=== PATIENT | female | born 1985 | race American Indian/Alaskan Native ===

== ENCOUNTER 2020-12-18 09:21 | Inpatient (IN) | payer MEDICAID ==
--- NOTE | 2020-12-18 09:30 | Emergency Department Report ---
ED Neuro Deficit HPI - General Stated Complaint: STROKE SX Time Seen by Provider: 12/18/20 09:23 Source: patient, EMS Mode of arrival: Ambulatory Limitations: No Limitations - History of Present Illness Initial Comments: Chief complaint: "My left leg is weak." HPI: This is a 35-year-old with history of TIA, hypertension, hyperlipidemia, diabetes mellitus lupus CHF and severe obesity who presents with left leg arm weakness and inability to walk. LEft leg weakness occurred 755. She felt her balance off. She keeps leaning to the left. Patient arrived via EMS. 2 months ago she was admitted to [facility] for stroke symptoms.EMS noted left arm drift. She was unable to stand or walk. -: Gradual, This morning Location: left leg Presenting Symptoms: Present: Weak/Paralyzed One Side History of same: Yes Place: home Severity: mild Quality: weak Improves With: none Worsens With: none Context: other (Patient awakened with symptoms) Associated Symptoms: other (Patient is unable to walk) - Related Data Allergies/Adverse Reactions: Allergies Allergy/AdvReac Type Severity Reaction Status Date / Time povidone-iodine AdvReac Itching Verified 12/18/20 10:18 [From Betadine] ED Review of Systems ROS: Stated complaint: STROKE SX Other details as noted in HPI Comment: All other systems reviewed and negative Constitutional: denies: fever, malaise Respiratory: denies: cough, shortness of breath Cardiovascular: denies: chest pain Gastrointestinal: denies: abdominal pain, nausea, vomiting Neurological: weakness ED Past Medical Hx - Past Medical History Previous Medical History?: Yes Hx Hypertension: Yes Hx CVA: Yes (TIA) Hx Diabetes: Yes Additional medical history: Hyperlipidemia, severe obesity - Family History Family history: hypertension, vascular disease - Social History Smoking Status: Never Smoker Substance Use Type: None ED Neuro Physical Exam - General Limitations: No Limitations General appearance: alert, in no apparent distress Suspected Stroke: Yes - Head Head exam: Present: atraumatic, normocephalic - Eye Eye exam: Present: normal appearance - ENT ENT exam: Present: mucous membranes moist - Neck Neck exam: Present: normal inspection, full ROM. Absent: tenderness, meni ngismus - Respiratory Respiratory exam: Present: normal lung sounds bilaterally. Absent: respiratory distress, wheezes, rales, rhonchi - Cardiovascular Cardiovascular Exam: Present: regular rate, normal rhythm, normal heart sounds. Absent: systolic murmur, diastolic murmur, rubs, gallop - GI/Abdominal GI/Abdominal exam: Present: soft, normal bowel sounds. Absent: distended, ten derness, guarding, rebound - Extremities Exam Extremities exam: Present: normal inspection - Neurological Exam Neurological exam: Present: alert, oriented X3 - NIHSS Assessment Interval: Baseline 1a. Level of Consciousness: alert/keenly responsive 1b. LOC Questions: answers both correctly 1c. LOC Commands: performs tasks correctly 2. Best Gaze: normal 3. Visual: no visual loss 4. Facial Palsy: normal symmetrical movement 5b. Motor Arm Right: no drift 5a. Motor Arm Left: some gravity effort 6a. Motor Leg Left: no gravity effort 6b. Motor Leg Right: no drift 7. Limb Ataxia: absent 8. Sensory: normal 9. Best Language: no aphasia 10. Dysarthria: normal 11. Extinction/Inattention: no abnormality Total Score: 5 Stroke Severity: Moderate Stroke - Psychiatric Psychiatric exam: Present: depressed, flat affect. Absent: suicidal ideation - Skin Skin exam: Present: warm, dry, intact, normal color. Absent: rash ED Course Vital Signs 12/18/20 12/18/20 12/18/20 09:53 10:01 10:02 Pulse Rate 90 Pulse Rate [ Right Arm] Respiratory 28 H Rate Respiratory Rate [Right Arm ] Blood Pressure 145/75 145/75 Blood Pressure [Right Arm] O2 Sat by Pulse 99 100 Oximetry O2 Sat by Pulse Oximetry [ Right Arm] 12/18/20 12/18/20 12/18/20 10:15 10:22 10:31 Pulse Rate 86 Pulse Rate [ 82 Right Arm] Respiratory 18 Rate Respiratory 17 Rate [Right Arm ] Blood Pressure 145/73 137/72 Blood Pressure 136/70 [Right Arm] O2 Sat by Pulse 100 99 Oximetry O2 Sat by Pulse 98 Oximetry [ Right Arm] 12/18/20 12/18/20 10:37 10:52 Pulse Rate Pulse Rate [ 90 88 Right Arm] Respiratory Rate Respiratory 16 16 Rate [Right Arm ] Blood Pressure Blood Pressure 130/71 135/78 [Right Arm] O2 Sat by Pulse Oximetry O2 Sat by Pulse 100 99 Oximetry [ Right Arm] - Reevaluation(s) Reevaluation #1: 12/18/20 09:[address] Dias radiologist. He reported normal CT scan of the head. Reevaluation #2: 12/18/20 09:50 I spoke with teleneurologist. He recommended TPA. I informed charge nurse that patient requires alteplase. I placed the TPA order. Teleneurologist obtained informed consent for TPA from patient. Reevaluation #3: 12/18/20 09:[address] angiogram of the head and neck. I have placed this order. Reevaluation #4: 12/18/20 10:30 I was called to the bedside. Treatment nurse tell me that patient felt an odd sensation. Patient is lucid and alert. She states that she just feels heavy. She has the inclination to just fall back. She denies headache. She does have "heavy sensation". She denies headache. She is currently receiving TPA infusion. - Lab Data Result diagrams: 12/18/20 09:59 12/18/20 09:59 Lab Results 12/18/20 12/18/20 12/18/20 Range/Units 09:25 09:59 09:59 WBC 4.5 (4.5-11.0) K/mm3 RBC 4.03 (3.65-5.03) M/mm3 Hgb 10.8 (10.1-14.3) gm/dl Hct 32.8 (30.3-42.9) % MCV 81 (79-97) fl MCH 27 L (28-32) pg MCHC 33 (30-34) % RDW 16.0 H (13.2-15.2) % Plt Count 204 (140-440) K/mm3 Lymph % (Auto) 34.0 (13.4-35.0) % Waldo % (Auto) 8.4 H (0.0-7.3) % Eos % (Auto) 2.6 (0.0-4.3) % Baso % (Auto) 0.4 (0.0-1.8) % Lymph # (Auto) 1.5 (1.2-5.4) K/mm3 Waldo # (Auto) 0.4 (0.0-0.8) K/mm3 Eos # (Auto) 0.1 (0.0-0.4) K/mm3 Baso # (Auto) 0.0 (0.0-0.1) K/mm3 Seg Neutrophils % 54.6 (40.0-70.0) % Seg Neutrophils # 2.4 (1.8-7.7) K/mm3 PT 14.2 (12.2-14.9) Sec. INR 1.04 (0.87-1.13) APTT 30.8 (24.2-36.6) Sec. Chloride (98-107) mmol/L POC Glucose 162 H (70-105) mg/dL Total Bilirubin (0.1-1.2) mg/dL Troponin T (0.00-0.029) ng/mL 12/18/20 Range/Units 09:59 WBC (4.5-11.0) K/mm3 RBC (3.65-5.03) M/mm3 Hgb (10.1-14.3) gm/dl Hct (30.3-42.9) % MCV (79-97) fl MCH (28-32) pg MCHC (30-34) % RDW (13.2-15.2) % Plt Count (140-440) K/mm3 Lymph % (Auto) (13.4-35.0) % Waldo % (Auto) (0.0-7.3) % Eos % (Auto) (0.0-4.3) % Baso % (Auto) (0.0-1.8) % Lymph # (Auto) (1.2-5.4) K/mm3 Waldo # (Auto) (0.0-0.8) K/mm3 Eos # (Auto) (0.0-0.4) K/mm3 Baso # (Auto) (0.0-0.1) K/mm3 Seg Neutrophils % (40.0-70.0) % Seg Neutrophils # (1.8-7.7) K/mm3 PT (12.2-14.9) Sec. INR (0.87-1.13) APTT (24.2-36.6) Sec. Chloride 60.0 L (98-107) mmol/L POC Glucose (70-105) mg/dL Total Bilirubin < 0.20 (0.1-1.2) mg/dL Troponin T < 0.010 (0.00-0.029) ng/mL - EKG Data EKG shows normal: sinus rhythm, axis, intervals, QRS complexes, ST-T waves Rate: normal Interpretation: normal EKG 12/18/20 10:26 EKG obtained 1007 EKG interpreted by nv Rate 80 bpm normal axis normal intervals nonischemic T wave pattern no ST elevation - Radiology Data Radiology results: report reviewed Patient Name: NEO WONG Gender: Female Date of : 1985 Referring Provider: SHEREEN MILLARD Organization: [facility] Accession Number: [id number] Requested Date: December 18, 2020 09:23 Report Status: Final Requested Procedure: 1 Procedure Description: CT head/brain wo con Modality: CT Findings Reporting MD: Pan Claire Dictation Time: December 18, 2020 08:50 Director Of Event Management: Not available Hammer Driver Date: CT HEAD WITHOUT CONTRAST INDICATION / CLINICAL INFORMATION: CODE STROKE CALL ER MAIN AT 8199 Stroke symptoms left leg weakness. TECHNIQUE: All CT scans at this location are performed using CT dose reduction for ALARA by means of automated exposure control. COMPARISON: None available. FINDINGS: HEMORRHAGE: No evidence of intracranial hemorrhage or extra-axial fluid collection. EXTRA-AXIAL SPACES: Cortical sulci, sylvian fissures and basilar cisterns have an unremarkable appearance. VENTRICULAR SYSTEM: The third and lateral ventricles are of normal size and con figuration. CEREBRAL PARENCHYMA: No areas of abnormal brain parenchymal attenuation are identified. There is no indication of recent infarction. MIDLINE SHIFT OR HERNIATION: There is no mass effect. CEREBELLUM / BRAINSTEM: Brainstem and cerebellum have an unremarkable appearance. MIDLINE STRUCTURES:No abnormalities of the pituitary gland or pineal region are identified. INTRACRANIAL VESSELS:No abnormalities are identified on this noncontrast head CT. ORBITS: visualized portions of the orbits have an unremarkable appearance. SOFT TISSUES of HEAD: No significant abnormality. CALVARIUM: Evaluation of bone windows reveals no abnormalities. PARANASAL SINUSES / MASTOID AIR CELLS: Visualized portions of the paranasal sinuses are free from inflammatory mucosal disease. Mastoid air cells are normally pneumatized. ADDITIONAL FINDINGS: Incidental note is made of prominent dural calcifications in the inner table of the parietal lobes bilaterally. IMPRESSION: 1. Normal head CT without contrast. CODE STROKE: Time of Communication (NURSING HOME ASSISTANT/CDT): 0850 hours Central standard time Licensed Practitioner Receiving Report: Dr. Millard of the [facility] emergency department. Signer Name: Pan Claire MD Signed: 12/18/2020 8:50 AM Workst Patient Name: NEO WONG Gender: Female Date of : 1985 Referring Provider: SHEREEN MILLARD Organization: [facility] Accession Number: [id number] Requested Date: December 18, 2020 09:23 Report Status: Final Requested Procedure: 1 Procedure Description: XR chest 1V ap Modality: XR Findings Reporting MD: Thomas Jules Dictation Time: December 18, 2020 09:06 Director Of Event Management: Not available Hammer Driver Date: CHEST 1 VIEW INDICATION: stroke symptoms left leg weakness. COMPARISON: None FINDINGS: Support devices: None. Heart: Mild cardiomegaly. Lungs/Pleura: There is poor inspiration. The lungs are generally clear. No pneumothorax. Additional findings: None. IMPRESSION: Mild cardiomegaly. Lungs clear. Signer Name: Thomas Jules Jr, MD Signed: 12/18/2020 9:06 AM Workstation Name: [id number] Patient Name: NEO WONG Gender: Female Date of : 1985 Referring Provider: SHEREEN MILLARD Organization: [facility] Accession Number: [id number] Requested Date: December 18, 2020 09:41 Report Status: Final Requested Procedure: 1 Procedure Description: CT angio head Modality: CT Findings Reporting MD: Rob Díaz Dictation Time: December 18, 2020 09:37 Director Of Event Management: Not available Hammer Driver Date: CT angio head HISTORY: stroke symptoms left sided weakness OMNI 350 100 ML COMPARISON: CT head same day. TECHNIQUE: CTA of the head is performed after IV contrast. 3-D/MIP reformats were postprocessed. Percentage stenosis is determined by direct quantitative measurements of diseased internal carotid artery diameter compared with normal distal internal carotid artery reference segments or by criteria similar to NASCET where applicable. All CT scans at this location are performed using CT dose reduction for ALARA by means of automated exposure control. FINDINGS: CTA HEAD: Intracranial internal carotid arteries: No occlusion or significant stenosis. Anterior cerebral arteries: No occlusion or significant stenosis. Middle cerebral arteries: No occlusion or significant stenosis. Intracranial vertebral arteries: No occlusion or significant stenosis. Basilar artery: No occlusion or significant stenosis. Posterior cerebral arteries: No occlusion or significant stenosis. No aneurysm. Additional findings: None. IMPRESSION: 1. CTA HEAD: No proximal large vessel occlusion or significant stenosis of the major intracranial vasculature. Signer Name: Rob Díaz MD Signed: 12/18/2020 9:37 AM Workstation Name: [id number] Patient Name: NEO WONG Gender: Female Date of : 1985 Referring Provider: SHEREEN MILLARD Organization: [facility] Accession Number: [id number] Requested Date: December 18, 2020 09:42 Report Status: Final Requested Procedure: 1 Procedure Description: CT angio neck Modality: CT Findings Reporting MD: Rob Díaz Dictation Time: December 18, 2020 09:35 Director Of Event Management: Not available Hammer Driver Date: CTA NECK WITH CONTRAST HISTORY: Stroke. COMPARISON: None. TECHNIQUE: Routine CTA of the neck is performed. 3-D/MIP reformats were postprocessed. Percentage stenosis is determined by direct quantitative measurements of diseased internal carotid artery diameter compared with normal distal internal carotid artery reference segments or by criteria similar to NASCET where applicable. CONTRAST: 100 ml of Omnipaque 350 FINDINGS: Aortic arch: No significant abnormality. Cervical vertebral arteries: Artifact degrades the V1 and proximal V2 segments of the vertebral arteries. The remainder of the V2, V3, V4 segments are patent without occlusion or stenosis.. Common carotid arteries: Artifact degrades image quality of the proximal common carotid arteries. The well-visualized, carotid arteries demonstrate no occlusion or significant stenosis. However there is no occlusion is contrast seen distally. Cervical internal carotid arteries: No occlusion or significant stenosis. Additional findings: None. IMPRESSION: 1. Artifact degrades the proximal portions of the vertebral and common carotid arteries. However, there is no significant stenosis or occlusion identified in the appreciated arteries. Signer Name: Rob Díaz MD Signed: 12/18/2020 9:35 AM Workstation Name: [id number] - Medical Decision Making Acute CVA NIHSS 5, total neurologist recommended alteplase. I ordered TPA. Patient symptoms did improve during administration of TPA. She is now able to move her left arm. Patient admitted to the ICU in fair condition. No LVO seen on CT angiogram of the head and neck. CBC chemistry troponin chest radiograph EKG all unremarkable. Critical Care Time: Yes Critical care time in (mins) excluding proc time.: 40 Critical care attestation.: If time is entered above; I have spent that time in minutes in the direct care of this critically ill patient, excluding procedure time. 40 minutes of critical care time excluding procedures were used in the care of the patient. Prior to patient's arrival, code stroke activated after consulting charge nurse. I came immediately to the bedside upon patient's arrival. I obtained history from EMS at the bedside. I asked paramedics to take patient to CT scanner. I discussed treatment plan with the nursing team members. I reviewed electronic record. Patient required multiple interventions and reassessments. ED Disposition Clinical Impression: Acute CVA (cerebrovascular accident) Disposition: ADMITTED INPATIENT Is pt being admited?: Yes Does the pt Need Aspirin: No Condition: Stable
[2020-12-18] MEDS ORDERED: ALTEPLASE 100 MG INJ KIT IV ONE ×2 (09:35)
[2020-12-18] MEDS ORDERED: SODIUM CHLORIDE 0.9% 50 ML IVPB IV SCH (09:35)
--- NOTE | 2020-12-18 09:54 | Cat Scan Report ---
CT HEAD WITHOUT CONTRAST INDICATION / CLINICAL INFORMATION: CODE STROKE CALL ER MAIN AT 8199 Stroke symptoms left leg weakness. TECHNIQUE: All CT scans at this location are performed using CT dose reduction for ALARA by means of automated e xposure control. COMPARISON: None available. FINDINGS: HEMORRHAGE: No evidence of intracranial hemorrhage or extra-axial fluid collection. EXTRA-AXIAL SPACES: Cortical sulci, sylvian fissures and basilar cisterns have an unremarkable appear ance. VENTRICULAR SYSTEM: The third and lateral ventricles are of normal size and configuration. CEREBRAL PARENCHYMA: No areas of abnormal brain parenchymal attenuation are identified. There is no i ndication of recent infarction. MIDLINE SHIFT OR HERNIATION: There is no mass effect. CEREBELLUM / BRAINSTEM: Brainstem and cerebellum have an unremarkable appearance. MIDLINE STRUCTURES:No abnormalities of the pituitary gland or pineal region are identified. INTRACRANIAL VESSELS:No abnormalities are identified on this noncontrast head CT. ORBITS: visualized portions of the orbits have an unremarkable appearance. SOFT TISSUES of HEAD: No significant abnormality. CALVARIUM: Evaluation of bone windows reveals no abnormalities. PARANASAL SINUSES / MASTOID AIR CELLS: Visualized portions of the paranasal sinuses are free from inf lammatory mucosal disease. Mastoid air cells are normally pneumatized. ADDITIONAL FINDINGS: Incidental note is made of prominent dural calcifications in the inner table of the parietal lobes bilaterally. IMPRESSION: 1. Normal head CT without contrast. CODE STROKE: Time of Communication (REGISTERED HEALTH NURSE/CDT): 0850 hours Central standard time Licensed Practitioner Receiving Report: Dr. Millard of the [facility] emergency department. Signer Name: Pan Claire MD Signed: 12/18/2020 9:50 AM Workstation Name: [id number]
[2020-12-18 10:09] LABS: Basophils % (Auto) 0.4 % (0.0-1.8); Eosinophils # (Auto) 0.1 K/mm3 (0.0-0.4); Eosinophils % (Auto) 2.6 % (0.0-4.3); Hematocrit 32.8 % (30.3-42.9); Hemoglobin 10.8 gm/dl (10.1-14.3); Lymphocytes # (Auto) 1.5 K/mm3 (1.2-5.4); Mean Corpuscular HGB Conc 33 % (30-34); Mean Corpuscular Volume 81 fl (79-97); Monocytes # (Auto) 0.4 K/mm3 (0.0-0.8); Monocytes % (Auto) 8.4 % (0.0-7.3); Platelet Count 204 K/mm3 (140-440); Red Blood Count 4.03 M/mm3 (3.65-5.03)
--- NOTE | 2020-12-18 10:11 | XRay Report ---
CHEST 1 VIEW INDICATION: stroke symptoms left leg weakness. COMPARISON: None FINDINGS: Support devices: None. Heart: Mild cardiomegaly. Lungs/Pleura: There is poor inspiration. The lungs are generally clear. No pneumothorax. Additional findings: None. IMPRESSION: Mild cardiomegaly. Lungs clear. Signer Name: Thomas Jules Jr, MD Signed: 12/18/2020 10:06 AM Workstation Name: [id number]
[2020-12-18 10:21] LABS: INR 1.04 (0.87-1.13)
[2020-12-18 10:22] LABS: Partial Thromboplastin Time 30.8 Sec. (24.2-36.6)
--- NOTE | 2020-12-18 10:30 | Consultation ---
History of Present Illness - Reason for Consult Consult date: 12/18/20 - History of Present Illness [facility] Consult Note # Demographics Consult Type: Acute Stroke Level 1 (0-4.5 hrs) Patient Location: Emergency Room First Name: Geovanna Last Name: Roxann Date of : 1985 Age: 35 Gender: Female Time of Initial Page ( Time): 12/18/2020, 09:26 Time of Return Call (): 12/18/2020, 09:27 # HPI History: 35yo woman who presents with sudden onset of left sided weakness starting at 825AM. She awoke at 755AM and had no issues. EMS was called, and she was noted to have left arm drift. She was not able to stand well. Sensation seems to be intact. She had a TIA a few months ago. Possible Thrombolytic candidate: not on warfarin or NOACs no intracranial hemorrhage history no recent major surgery no known active major internal bleeding no known blood disorders # Scores Time of exam and NIHSS (): 12/18/2020, 09:28 Level of Consciousness 1a: [0] = Alert; keenly responsive LOC Questions 1b: [0] = Answers both questions correctly LOC Commands 1c: [0] = Performs both tasks correctly Best Gaze 2: [0] = Normal Visual 3: [0] = No visual loss Facial Palsy 4: [0] = Normal symmetrical movements Motor Arm Left 5a: [1] = Drift Motor Arm Right 5b: [0] = No drift Motor Leg Left 6a: [4] = No movement Motor Leg Right 6b: [0] = No drift Limb Ataxia 7: [0] = Absent Sensory 8: [0] = Normal Best Language 9: [0] = No aphasia Dysarthria 10: [0] = Normal Extinction and Inattention 11: [0] = No abnormality NIHSS Total: 5 # Exam Vitals: vital signs reviewed SBP: 150 DBP: 90 # PMH-FH-SH Past Medical History: congestive heart failure Diabetes hypertension TIA lupus Medications: aspirin lipid lowering agent Allergies: betadine # Data Glucose: [address] personally read by me ( Time): 12/18/2020, 09:[address]: no bleed # Assessment Impression: Ischemic Stroke (Acute) # Plan Thrombolytic/Intervention: IV Thrombolysis Thrombolytic Dosing: IV alteplase 0.9 mg/kg, max dose 90 mg; 10% of dose given over 1 minute IVP, remaining 90% given as infusion over 1 hour Intraarterial Exclusion: clinically consistent with small vessel disease Time IV Thrombolytic Recommended ( Time): 12/18/2020, 09:31 Target Blood Pressure: SBP < 180 DBP < 105 Labs: ESR lipid panel Imaging: (urgency: STAT): CT Angiogram Head and CT Angiogram Neck Diagnostic Test: echo with bubble study Therapy/Evaluation: NPO until swallow evaluation PT/OT evaluation speech/swallow consultation DVT Prophylaxis: SCD Thrombolytic Administration Recommendations: I reviewed the risks/benefits/alternatives of IV thrombolytic therapy with the patient. She understands there is potential of life threatening hemorrhage from IV thrombolysis. I stated that I believe benefits outweighs risk. She wishes to proceed with IV thrombolytic therapy. I have collected independent history specific to time last normal or last known well. We have collaborated with the ED provider and at this time, we have the most current timeline with the information that is available. BP goal< 180/105 for 24hrs post Thrombolytic administration Use Labetolol 10-20mg IV prn or Nicardipine gtt to maintain BP parameters No antiplatelets or anticoagulants for next 24 hrs unless indicated for emergent IA procedure or other life threatening situation ICU admission Call back if there is any decline in neurological condition Other: telemetry monitoring I have discussed my recommendations with the referring provider Disposition: transfer to ICU Medications and Allergies Allergies Allergy/AdvReac Type Severity Reaction Status Date / Time povidone-iodine AdvReac Itching Verified 12/18/20 10:18 [From Betadine] Active Meds: Active Medications Alteplase, Recombinant (Alteplase 100 Mg Inj Kit) 9 mg IV ONCE ONE; Protocol Stop: 12/18/20 09:36 Last Admin: 12/18/20 10:01 Dose: 9 mg Documented by: Alteplase, Recombinant (Alteplase 100 Mg Inj Kit) 81 mg IV ONCE ONE; Protocol Stop: 12/18/20 09:36 Last Admin: 12/18/20 10:02 Dose: 81 mg Documented by: Sodium Chloride (Sodium Chloride 0.9% 50 Ml Ivpb) 50 ml IV ONCE ONE Stop: 12/18/20 09:36 Exam - Constitutional Vitals: Temp Pulse Resp BP Pulse Ox 85 16 145/73 99 12/18/20 10:15 12/18/20 10:15 12/18/20 10:15 12/18/20 10:15 Results - Labs CBC & Chem 7: 12/18/20 09:59 12/18/20 09:59 Labs: Abnormal lab results 12/18/20 12/18/20 Range/Units 09:25 09:59 MCH 27 L (28-32) pg RDW 16.0 H (13.2-15.2) % Marshall % (Auto) 8.4 H (0.0-7.3) % POC Glucose 162 H (70-105) mg/dL
[2020-12-18 10:31] LABS: Hemolysis Index 1
--- NOTE | 2020-12-18 10:39 | Cat Scan Report ---
CTA NECK WITH CONTRAST HISTORY: Stroke. COMPARISON: None. TECHNIQUE: Routine CTA of the neck is performed. 3-D/MIP reformats were postprocessed. Percentage st enosis is determined by direct quantitative measurements of diseased internal carotid artery diameter compared with normal distal internal carotid artery reference segments or by criteria similar to JOSÉ LUIS CET where applicable. CONTRAST: 100 ml of Omnipaque 350 FINDINGS: Aortic arch: No significant abnormality. Cervical vertebral arteries: Artifact degrades the V1 and proximal V2 segments of the vertebral arter ies. The remainder of the V2, V3, V4 segments are patent without occlusion or stenosis.. Common carotid arteries: Artifact degrades image quality of the proximal common carotid arteries. The well-visualized, carotid arteries demonstrate no occlusion or significant stenosis. However there is no occlusion is contrast seen distally. Cervical internal carotid arteries: No occlusion or significant stenosis. Additional findings: None. IMPRESSION: 1. Artifact degrades the proximal portions of the vertebral and common carotid arteries. However, the re is no significant stenosis or occlusion identified in the appreciated arteries. Signer Name: Rob Díaz MD Signed: 12/18/2020 10:35 AM Workstation Name: [id number]
--- NOTE | 2020-12-18 10:41 | Cat Scan Report ---
CT angio head HISTORY: stroke symptoms left sided weakness OMNI 350 100 ML COMPARISON: CT head same day. TECHNIQUE: CTA of the head is performed after IV contrast. 3-D/MIP reformats were postprocessed. Per centage stenosis is determined by direct quantitative measurements of diseased internal carotid arter y diameter compared with normal distal internal carotid artery reference segments or by criteria sade lar to NASCET where applicable. All CT scans at this location are performed using CT dose reduction f or ALARA by means of automated exposure control. FINDINGS: CTA HEAD: Intracranial internal carotid arteries: No occlusion or significant stenosis. Anterior cerebral arteries: No occlusion or significant stenosis. Middle cerebral arteries: No occlusion or significant stenosis. Intracranial vertebral arteries: No occlusion or significant stenosis. Basilar artery: No occlusion or significant stenosis. Posterior cerebral arteries: No occlusion or significant stenosis. No aneurysm. Additional findings: None. IMPRESSION: 1. CTA HEAD: No proximal large vessel occlusion or significant stenosis of the major intracranial vas culature. Signer Name: Rob Díaz MD Signed: 12/18/2020 10:37 AM Workstation Name: [id number]
[2020-12-18 12:05] LABS: Alanine Aminotransferase 12 units/L (7-56); Albumin 3.5 g/dL (3.9-5); BUN/Creatinine Ratio 15; Blood Urea Nitrogen 12 mg/dL (7-17); Calcium 8.8 mg/dL (8.4-10.2)
[2020-12-18] MEDS ORDERED: ONDANSETRON 4 MG/2 ML INJ IV PRN (13:00)
[2020-12-18] MEDS ORDERED: SODIUM CHLORIDE 0.9% 1000 ML 1,000 ML IV SCH (13:00)
[2020-12-18] MEDS ORDERED: ACETAMINOPHEN 325 MG TAB PO PRN (13:00)
[2020-12-18] MEDS: FAMOTIDINE 20 MG/2 ML INJ IV SCH ×2 (13:20→21:36)
[2020-12-18] MEDS: HYDROmorphone 1 MG/1 ML INJ IV PRN ×3 (13:21→20:37)
[2020-12-19 06:02] LABS: Basophils % (Auto) 0.2 % (0.0-1.8); Eosinophils # (Auto) 0.1 K/mm3 (0.0-0.4); Eosinophils % (Auto) 0.7 % (0.0-4.3); Hematocrit 32.6 % (30.3-42.9); Hemoglobin 10.8 gm/dl (10.1-14.3); Lymphocytes # (Auto) 1.5 K/mm3 (1.2-5.4); Lymphocytes % (Auto) 19.5 % (13.4-35.0); Mean Corpuscular HGB Conc 33 % (30-34); Mean Corpuscular Volume 82 fl (79-97); Monocytes # (Auto) 0.4 K/mm3 (0.0-0.8); Monocytes % (Auto) 5.6 % (0.0-7.3); Platelet Count 219 K/mm3 (140-440); Red Cell Distribution Width 16.1 % (13.2-15.2)
[2020-12-19 06:19] LABS: Alanine Aminotransferase 15 units/L (7-56); Albumin 3.7 g/dL (3.9-5); Blood Urea Nitrogen 10 mg/dL (7-17); Calcium 8.5 mg/dL (8.4-10.2); Hemolysis Index 8
[2020-12-19 06:21] LABS: BUN/Creatinine Ratio 14
--- NOTE | 2020-12-19 06:42 | History and Physical Report ---
History of Present Illness Date of examination: 12/18/20 Date of admission: 12/18/20 11:30 Chief complaint: Left-sided weakness since 7:55 AM History of present illness: 35-year-old female with history of hypertension, TIA, hyperlipidemia, diabetes mellitus, lupus and CHF and obesity comes in with left-sided weakness in both left upper extremity and left lower extremity. Last well-known time was 7 AM. Patient had difficulty walking around 7:55 AM. Patient has been off her balance. Called EMS. 2 months ago she was admitted to [facility] for TIA. Patient is unable to stand or walk. Patient unable to lift her left arm. In the ER code stroke was called and the teleneurology agreed with TPA and TPA was given because the patient was within the timeframe of TPA. Post TPA patient doing well has some improvement in the left upper extremity weakness and left lower extremity weakness. - Past Medical History Previous Medical History?: Yes --Hypertension: Yes --CVA: Yes (TIA) --Diabetes: Yes Additional medical history: Hyperlipidemia, severe obesity - Past surgical history n/a - Family History Family history: hypertension, vascular disease - Social History Smoking Status: Never Smoker Substance Use Type: None Review of Systems ROS: Constitutional no weight loss or weight gain no fever or chills HEENT no sore throat no post nasal drip no diplopia Neck no neck stiffness no lymph gland enlargement Chest and lungs no shortness of breath cough or wheezing CVS no chest pain no diaphoresis no palpitations GI no nausea no vomiting no diarrhea Genitourinary system no dysuria no flank pain Musculoskeletal system no muscle pains 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 both upper and lower extremity on the left side Skin no rash no itching Psychiatric no depression no homicidal or suicidal tendencies Hematologic no lymphedema or bruising Endocrine no polydipsia no polyuria no cold intolerance no heat intolerance Medications and Allergies Allergies Allergy/AdvReac Type Severity Reaction Status Date / Time povidone-iodine AdvReac Itching Verified 12/18/20 10:18 [From Betadine] Active Meds: Active Medications Acetaminophen (Acetaminophen 325 Mg Tab) 650 mg PO Q4H PRN PRN Reason: Pain MILD(1-3)/Fever >100.5/PERKINS Famotidine (Famotidine 20 Mg/2 Ml Inj) 20 mg IV BID CHRISTINE Last Admin: 12/18/20 21:36 Dose: 20 mg Documented by: Hydromorphone HCl (Hydromorphone 1 Mg/1 Ml Inj) 0.5 mg IV Q3H PRN PRN Reason: Pain , Severe (7-10) Last Admin: 12/18/20 20:37 Dose: 0.5 mg Documented by: Sodium Chloride (Nacl 0.9% 1000 Ml) 1,000 mls @ 75 mls/hr IV DIRECT [facility] Last Admin: 12/18/20 13:27 Dose: 75 mls/hr Documented by: Morphine Sulfate (Morphine 2 Mg/1 Ml Inj) 2 mg IV Q4H PRN PRN Reason: Pain, Moderate (4-6) Ondansetron HCl (Ondansetron 4 Mg/2 Ml Inj) 4 mg IV Q8H PRN PRN Reason: Nausea And Vomiting Sodium Chloride (Sodium Chloride 0.9% 10 Ml Flush Syringe) 10 ml IV BID [facility] Last Admin: 12/18/20 22:36 Dose: 10 ml Documented by: Sodium Chloride (Sodium Chloride 0.9% 10 Ml Flush Syringe) 10 ml IV PRN PRN PRN Reason: LINE FLUSH Exam - Constitutional Vitals: Temp Pulse Resp BP Pulse Ox 97 H 17 135/83 98 12/18/20 19:15 12/18/20 19:15 12/18/20 19:15 12/18/20 19:15 General appearance: Present: no acute distress, well-nourished - EENT Eyes: Present: PERRL ENT: hearing intact, clear oral mucosa - Neck Neck: Present: supple, normal ROM - Respiratory Respiratory effort: normal Respiratory: bilateral: CTA - Cardiovascular Heart rate: 78 Rhythm: regular Heart Sounds: Present: S1 & S2. Absent: rub, click - Extremities Extremities: no ischemia, pulses intact, pulses symmetrical, No edema Peripheral Pulses: within normal limits - Abdominal General gastrointestinal: Present: soft, non-tender, non-distended, normal bowel sounds Female genitourinary: Present: normal - Integumentary Integumentary: Present: clear, warm, dry - Musculoskeletal Musculoskeletal: left sided weakness - Psychiatric Psychiatric: appropriate mood/affect, intact judgment & insight - Neurologic Neurologic: CNII-XII intact, focal deficits (Left upper extremity 3/5 power left lower extremity 2/5 power), other (Walk) - Allied Health Allied health notes reviewed: nursing, PT, ST, OT, RT, social work, case management HEART Score - HEART Score History: Slightly suspicious Age: < 45 Risk factors: 1-2 risk factors Troponin: Troponin T < 0.010 ng/mL (0.00-0.029) 12/18/20 09:59 Troponin: < normal limit - Critical Actions Critical Actions: 0-3 pts:0.9-1.7%risk of adverse cardiac event.Candidate for discharge Results - Labs CBC & Chem 7: 12/19/20 04:49 12/19/20 04:49 Labs: Laboratory Last Values WBC 7.7 K/mm3 (4.5-11.0) 12/19/20 04:49 RBC 4.00 M/mm3 (3.65-5.03) 12/19/20 04:49 Hgb 10.8 gm/dl (10.1-14.3) 12/19/20 04:49 Hct 32.6 % (30.3-42.9) 12/19/20 04:49 MCV 82 fl (79-97) 12/19/20 04:49 MCH 27 pg (28-32) L 12/19/20 04:49 MCHC 33 % (30-34) 12/19/20 04:49 RDW 16.1 % (13.2-15.2) H 12/19/20 04:49 Plt Count 219 K/mm3 (140-440) 12/19/20 04:49 Lymph % (Auto) 19.5 % (13.4-35.0) 12/19/20 04:49 [place] % (Auto) 5.6 % (0.0-7.3) 12/19/20 04:49 Eos % (Auto) 0.7 % (0.0-4.3) 12/19/20 04:49 Baso % (Auto) 0.2 % (0.0-1.8) 12/19/20 04:49 Lymph # (Auto) 1.5 K/mm3 (1.2-5.4) 12/19/20 04:49 [place] # (Auto) 0.4 K/mm3 (0.0-0.8) 12/19/20 04:49 Eos # (Auto) 0.1 K/mm3 (0.0-0.4) 12/19/20 04:49 Baso # (Auto) 0.0 K/mm3 (0.0-0.1) 12/19/20 04:49 Seg Neutrophils % 74.0 % (40.0-70.0) H 12/19/20 04:49 Seg Neutrophils # 5.7 K/mm3 (1.8-7.7) 12/19/20 04:49 PT 14.2 Sec. (12.2-14.9) 12/18/20 09:59 INR 1.04 (0.87-1.13) 12/18/20 09:59 APTT 30.8 Sec. (24.2-36.6) 12/18/20 09:59 Sodium 135 mmol/L (137-145) L 12/19/20 04:49 Potassium 3.8 mmol/L (3.6-5.0) 12/19/20 04:49 Chloride 101.6 mmol/L (98-107) 12/19/20 04:49 Carbon Dioxide 22 mmol/L (22-30) 12/19/20 04:49 Anion Gap 15 mmol/L 12/19/20 04:49 BUN 10 mg/dL (7-17) 12/19/20 04:49 Creatinine 0.7 mg/dL (0.6-1.2) 12/19/20 04:49 Estimated GFR > 60 ml/min 12/19/20 04:49 BUN/Creatinine Ratio 14 % 12/19/20 04:49 Glucose 164 mg/dL (65-100) H 12/19/20 04:49 POC Glucose 162 mg/dL (70-105) H 12/18/20 09:25 Calcium 8.5 mg/dL (8.4-10.2) 12/19/20 04:49 Total Bilirubin 0.30 mg/dL (0.1-1.2) 12/19/20 04:49 AST 17 units/L (5-40) 12/19/20 04:49 ALT 15 units/L (7-56) 12/19/20 04:49 Alkaline Phosphatase 115 units/L (35-129) 12/19/20 04:49 Troponin T < 0.010 ng/mL (0.00-0.029) 12/18/20 09:59 Total Protein 8.2 g/dL (6.3-8.2) 12/19/20 04:49 Albumin 3.7 g/dL (3.9-5) L 12/19/20 04:49 Albumin/Globulin Ratio 0.8 % 12/19/20 04:49 - Imaging and Cardiology EKG: report reviewed (No ST-T wave elevation nonspecific ST-T wave changes) Imaging and Cardiology: Chest x-ray Mild cardiomegaly Lungs are clear Head CT Normal head CT without contrast Neck CTA No probable large vessel occlusion or significant stenosis of the major intracranial vasculature CTA neck with no significant stenosis or occlusion identified in the appreciated arteries Assessment and Plan Advance Directives: Yes (Full code) VTE prophylaxis?: Chemical Plan of care discussed with patient/family: Yes - Patient Problems (1) Acute CVA (cerebrovascular accident) Current Visit: Yes Status: Acute Plan to address problem: S/p tPA Being admitted to ICU for post TPA fracture Aspirin to be resumed on daily 2/3 Neurology consult requested High intensity statins Physical therapy and Occupational Therapy (2) Hypertension Current Visit: Yes Status: Chronic Qualifiers: Hypertension type: primary hypertension Qualified Code(s): I10 - Essential (primary) hypertension Plan to address problem: Continue antihypertensives and adjust medications (3) T2DM (type 2 diabetes mellitus) Current Visit: Yes Status: Chronic Qualifiers: Diabetes mellitus 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 Pickett (6) Hyponatremia Current Visit: Yes Status: Acute Plan to address problem: Mild IV normal saline for now (7) Malnutrition Current Visit: Yes Status: Chronic Qualifiers: Protein-calorie malnutrition severity: mild Plan to address problem: Dietary supplements for now (8) DVT prophylaxis Current Visit: Yes Status: Acute Plan to address problem: On SCDs and GI prophylaxis
[2020-12-19] MEDS: INSULIN LISPRO 100 UNIT/ML SUB-Q SCH ×3 (09:22→17:51)
[2020-12-19] MEDS: MORPHINE 2 MG/1 ML INJ IV PRN ×2 (10:06→17:51)
[2020-12-19] MEDS: FAMOTIDINE 20 MG/2 ML INJ IV SCH (10:06)
--- NOTE | 2020-12-19 13:37 | Cat Scan Report ---
CT HEAD WITHOUT CONTRAST INDICATION / CLINICAL INFORMATION: 24 hours post tpa. TECHNIQUE: All CT scans at this location are performed using CT dose reduction for ALARA by means of automated exposure control. COMPARISON: CT head from 12/18/2020. FINDINGS: BRAIN PARENCHYMA: Temporal evolution of small area of hypoattenuation within the medial aspect of the right frontal lobe, compatible with recent infarct. No evidence of acute intracranial hemorrhage sta tus post TPA. VENTRICULAR SYSTEM/EXTRA-AXIAL SPACES: Ventricles are normal for age. No extra-axial fluid collection . ORBITS: Normal as visualized. SKELETAL SYSTEM/SOFT TISSUES: Normal bones and soft tissues. PARANASAL SINUSES/MASTOID AIR CELLS: No significant abnormality. ADDITIONAL FINDINGS: None. IMPRESSION: Temporal evolution of recent infarct of the medial right frontal lobe. No evidence of acute intracran ial hemorrhage status post TPA. Signer Name: Mannie Celis MD Signed: 12/19/2020 1:32 PM Workstation Name: [id number]
[2020-12-19 14:40] LABS: Chol/HDL Ratio 3.42 %
[2020-12-19 18:30] VITALS: BP 121/86
[2020-12-19] MEDS ORDERED: ASPIRIN 325 MG TAB PO SCH (19:25)
[2020-12-19] MEDS ORDERED: oxyCODONE /ACETAMINOPHEN 5-325MG TAB PO PRN (19:46)
--- NOTE | 2020-12-19 19:46 | Progress Note ---
Assessment and Plan Assessment and plan: This is a 35-year-old female with HTN, prior TIA 2 months ago, HLD, DM, lupus, MR and CHF admitted for acute CVA Neuro: Acute CVA -Neurology consulted, appreciate recommendations -Initial CT head without contrast showed no acute intracranial abnormality -Received TPA 12/18 ~929 -CTA head/neck completed-> see report -MRI brain pending -[address] head shows temporal evolution of recent infarct of the right frontal lobe without evidence of acute intracranial hemorrhage -PT/OT consulted, appreciate recommendations -Accu-Cheks q4 -Avoid hypoglycemia and maintain normothermia -Avoid hypotension with goal systolic blood less than 160/110 -Aspiration/seizure/fall precautions -Neurochecks per protocol -Lipid profile pending -Aspirin, Lipitor Cardio: h/o HTN, hyperlipidemia -No home medications listed -Ask RN to update -Blood pressure monitor per protocol -Maintain blood pressure less than 160/110 Respiratory: NAD -Supplemental oxygen as needed -Continue SPO2 monitoring -Pulmonary hygiene GI: MO -CC cardiac diet -BR: Colace -PPI -Encourage lifestyle and dietary modifications : Hyponateremia -purwick -Trend BMP Endo: h/o DM -hbg A1C pending -CC cardiac diet -Aviod hypoglycemia -Accucheck ACHS -SSI Heme: NAD -Trend CBC -Transfuse for hemoglobin less than 7 -Heparin subcu -SCDs to bilateral lower extremities while in bed The high probability of a clinically significant, sudden or life threatening deterioration of the [neuro] system(s) required my full and direct attention, intervention and personal management. The aggregate critical care time was [60] minutes. This time is in addition to time spent performing reported procedures but includes the following: [x] Data Review and interpretation [x] Patient assessment and monitoring of vital signs [x] Documentation [x] Medication orders and management Disposition Plan: transfer to floor Total Time Spent with Patient (Minutes): 60 History Interval history: This is a 35-year-old female with HTN, prior TIA 2 months prior, HLD, DM, lupus, MO, and CHF who presents to the emergency department with left-sided weakness in both upper and lower extremity, inability to stand or walk, inability to left arm with last known well at 7 AM. Code stroke was called in the emergency department telemetry neurology prescribed TPA which was given. Post TPA patient initially had some improvement in the left upper and lower extremity weakness. 12/19: Patient received a CT head today and MRI brain is pending. Patient will be downgraded to telemetry as it has been greater than 24 hours post TPA. Hospitalist Physical - Constitutional Vitals: Temp Pulse Resp BP Pulse Ox 99 H 20 121/86 100 12/19/20 18:29 12/19/20 18:29 12/19/20 18:29 12/19/20 18:29 General appearance: Present: no acute distress, well-nourished, obese - EENT Eyes: Present: PERRL, EOM intact ENT: clear oral mucosa, dentition normal - Neck Neck: Present: normal ROM - Respiratory Respiratory effort: normal Respiratory: bilateral: diminished - Cardiovascular Rhythm: regular Heart Sounds: Present: S1 & S2. Absent: systolic murmur, diastolic murmur - Extremities Extremities: no ischemia, pulses intact, pulses symmetrical, No edema, normal temperature, normal color Peripheral Pulses: within normal limits - Abdominal General gastrointestinal: soft, non-tender, non-distended, normal bowel sounds - Integumentary Integumentary: Present: clear, warm, dry - Psychiatric Psychiatric: cooperative - Neurologic Neurologic: CNII-XII intact, focal deficits (L UE/LE weakness with altered sensation (3/4 UE and 4/4 LE)), no moves all extremities - Allied Health Allied health notes reviewed: nursing, social work HEART Score - HEART Score Age: < 45 Risk factors: 1-2 risk factors Troponin: Troponin T < 0.010 ng/mL (0.00-0.029) 12/18/20 09:59 Troponin: < normal limit - Critical Actions Critical Actions: 0-3 pts:0.9-1.7%risk of adverse cardiac event.Candidate for discharge Results - Labs CBC & Chem 7: 12/19/20 04:49 12/19/20 04:49 Labs: Laboratory Last Values WBC 7.7 K/mm3 (4.5-11.0) 12/19/20 04:49 RBC 4.00 M/mm3 (3.65-5.03) 12/19/20 04:49 Hgb 10.8 gm/dl (10.1-14.3) 12/19/20 04:49 Hct 32.6 % (30.3-42.9) 12/19/20 04:49 MCV 82 fl (79-97) 12/19/20 04:49 MCH 27 pg (28-32) L 12/19/20 04:49 MCHC 33 % (30-34) 12/19/20 04:49 RDW 16.1 % (13.2-15.2) H 12/19/20 04:49 Plt Count 219 K/mm3 (140-440) 12/19/20 04:49 Lymph % (Auto) 19.5 % (13.4-35.0) 12/19/20 04:49 [place] % (Auto) 5.6 % (0.0-7.3) 12/19/20 04:49 Eos % (Auto) 0.7 % (0.0-4.3) 12/19/20 04:49 Baso % (Auto) 0.2 % (0.0-1.8) 12/19/20 04:49 Lymph # (Auto) 1.5 K/mm3 (1.2-5.4) 12/19/20 04:49 [place] # (Auto) 0.4 K/mm3 (0.0-0.8) 12/19/20 04:49 Eos # (Auto) 0.1 K/mm3 (0.0-0.4) 12/19/20 04:49 Baso # (Auto) 0.0 K/mm3 (0.0-0.1) 12/19/20 04:49 Seg Neutrophils % 74.0 % (40.0-70.0) H 12/19/20 04:49 Seg Neutrophils # 5.7 K/mm3 (1.8-7.7) 12/19/20 04:49 PT 14.2 Sec. (12.2-14.9) 12/18/20 09:59 INR 1.04 (0.87-1.13) 12/18/20 09:59 APTT 30.8 Sec. (24.2-36.6) 12/18/20 09:59 Sodium 135 mmol/L (137-145) L 12/19/20 04:49 Potassium 3.8 mmol/L (3.6-5.0) 12/19/20 04:49 Chloride 101.6 mmol/L (98-107) 12/19/20 04:49 Carbon Dioxide 22 mmol/L (22-30) 12/19/20 04:49 Anion Gap 15 mmol/L 12/19/20 04:49 BUN 10 mg/dL (7-17) 12/19/20 04:49 Creatinine 0.7 mg/dL (0.6-1.2) 12/19/20 04:49 Estimated GFR > 60 ml/min 12/19/20 04:49 BUN/Creatinine Ratio 14 % 12/19/20 04:49 Glucose 164 mg/dL (65-100) H 12/19/20 04:49 POC Glucose 135 mg/dL (70-105) H 12/19/20 17:11 Calcium 8.5 mg/dL (8.4-10.2) 12/19/20 04:49 Total Bilirubin 0.30 mg/dL (0.1-1.2) 12/19/20 04:49 AST 17 units/L (5-40) 12/19/20 04:49 ALT 15 units/L (7-56) 12/19/20 04:49 Alkaline Phosphatase 115 units/L (35-129) 12/19/20 04:49 Troponin T < 0.010 ng/mL (0.00-0.029) 12/18/20 09:59 Total Protein 8.2 g/dL (6.3-8.2) 12/19/20 04:49 Albumin 3.7 g/dL (3.9-5) L 12/19/20 04:49 Albumin/Globulin Ratio 0.8 % 12/19/20 04:49 Triglycerides 104 mg/dL (2-149) 12/19/20 13:58 Cholesterol 89 mg/dL (50-199) 12/19/20 13:58 LDL Cholesterol Direct 54 mg/dL (50-130) 12/19/20 13:58 HDL Cholesterol 26 mg/dL (40-59) L 12/19/20 13:58 Cholesterol/HDL Ratio 3.42 % 12/19/20 13:58 Active Medications - Current Medications Current Medications: Generic Name Dose Route Start Last Admin Trade Name Freq PRN Reason Stop Dose Admin Acetaminophen 650 mg 12/18/20 13:00 Acetaminophen 325 Mg Tab PO Q4H PRN Pain MILD(1-3)/Fever >100.5/PERKINS Aspirin 325 mg 12/19/20 19:25 Aspirin 325 Mg Tab PO QDAY [facility] Atorvastatin Calcium 40 mg 12/19/20 22:00 Atorvastatin 40 Mg Tab PO QHS [facility] Docusate Sodium 100 mg 12/19/20 22:00 Docusate Sodium 100 Mg Cap PO BID [facility] Famotidine 20 mg 12/20/20 10:00 Famotidine 20 Mg Tab PO QDAY [facility] Hydromorphone HCl 0.5 mg 12/18/20 13:00 12/18/20 20:37 Hydromorphone 1 Mg/1 Ml Inj IV 0.5 mg Q3H PRN Administration Pain , Severe (7-10) Sodium Chloride 1,000 mls @ 75 mls/hr 12/18/20 13:00 12/18/20 13:27 Nacl 0.9% 1000 Ml IV 75 mls/hr DIRECT CHRISTINE Administration Insulin Human Lispro 0 unit 12/19/20 07:30 12/19/20 17:51 Insulin Lispro 100 Unit/Ml SUB-Q Not Given ACHS [facility] Protocol Morphine Sulfate 2 mg 12/18/20 13:00 12/19/20 17:51 Morphine 2 Mg/1 Ml Inj IV 2 mg Q4H PRN Administration Pain, Moderate (4-6) Ondansetron HCl 4 mg 12/18/20 13:00 Ondansetron 4 Mg/2 Ml Inj IV Q8H PRN Nausea And Vomiting Sodium Chloride 10 ml 12/18/20 13:00 12/19/20 10:06 Sodium Chloride 0.9% 10 Ml Flush Syringe IV 10 ml BID CHRISTINE Administration Sodium Chloride 10 ml 12/18/20 13:00 Sodium Chloride 0.9% 10 Ml Flush Syringe IV PRN PRN LINE FLUSH Sodium Chloride 10 ml 12/19/20 06:53 Sodium Chloride 0.9% 10 Ml Flush Syringe IV PRN PRN LINE FLUSH
[2020-12-19] MEDS ORDERED: DOCUSATE SODIUM 100 MG CAP PO SCH (22:00)
[2020-12-20] MEDS ORDERED: FAMOTIDINE 20 MG TAB PO SCH (10:00)
[2020-12-20] MEDS ORDERED: ASPIRIN 325 MG TAB PO SCH (10:00)
--- NOTE | 2020-12-20 12:16 | Progress Note ---
Assessment and Plan Assessment and plan: Assessment and plan: This is a 35-year-old female with HTN, prior TIA 2 months ago, HLD, DM, lupus, MR and CHF admitted for acute CVA Neuro: Acute CVA -Neurology consulted, appreciate recommendations -Initial CT head without contrast showed no acute intracranial abnormality -Received TPA 12/18 ~929 -CTA head/neck completed-> see report -MRI brain pending -[address] head shows temporal evolution of recent infarct of the right frontal lobe without evidence of acute intracranial hemorrhage -PT/OT consulted, appreciate recommendations -Accu-Cheks q4 -Avoid hypoglycemia and maintain normothermia -Avoid hypotension with goal systolic blood less than 160/110 -Aspiration/seizure/fall precautions -Neurochecks per protocol -Lipid profile pending -Aspirin, Lipitor Cardio: h/o HTN, hyperlipidemia -No home medications listed -Ask RN to update -Blood pressure monitor per protocol Respiratory: NAD -Supplemental oxygen as needed -Continue SPO2 monitoring -Pulmonary hygiene GI: MO -CC cardiac diet -BR: Colace -PPI -Encourage lifestyle and dietary modifications : Hyponateremia -purwick -Trend BMP Endo: h/o DM -hbg A1C pending -CC cardiac diet -Aviod hypoglycemia -Accucheck ACHS -SSI Heme: NAD -Trend CBC -Transfuse for hemoglobin less than 7 -Heparin subcu -SCDs to bilateral lower extremities while in bed Hospitalist Physical - Constitutional Vitals: Temp Pulse Resp BP Pulse Ox 112 H 21 121/86 95 12/19/20 19:30 12/19/20 19:30 12/19/20 19:45 12/19/20 19:45 General appearance: Present: no acute distress, well-nourished, obese HEART Score - HEART Score Age: < 45 Risk factors: 1-2 risk factors Troponin: Troponin T < 0.010 ng/mL (0.00-0.029) 12/18/20 09:59 Troponin: < normal limit - Critical Actions Critical Actions: 0-3 pts:0.9-1.7%risk of adverse cardiac event.Candidate for discharge Results - Labs CBC & Chem 7: 12/19/20 04:49 12/19/20 04:49 Labs: Laboratory Last Values WBC 7.7 K/mm3 (4.5-11.0) 12/19/20 04:49 RBC 4.00 M/mm3 (3.65-5.03) 12/19/20 04:49 Hgb 10.8 gm/dl (10.1-14.3) 12/19/20 04:49 Hct 32.6 % (30.3-42.9) 12/19/20 04:49 MCV 82 fl (79-97) 12/19/20 04:49 MCH 27 pg (28-32) L 12/19/20 04:49 MCHC 33 % (30-34) 12/19/20 04:49 RDW 16.1 % (13.2-15.2) H 12/19/20 04:49 Plt Count 219 K/mm3 (140-440) 12/19/20 04:49 Lymph % (Auto) 19.5 % (13.4-35.0) 12/19/20 04:49 [place] % (Auto) 5.6 % (0.0-7.3) 12/19/20 04:49 Eos % (Auto) 0.7 % (0.0-4.3) 12/19/20 04:49 Baso % (Auto) 0.2 % (0.0-1.8) 12/19/20 04:49 Lymph # (Auto) 1.5 K/mm3 (1.2-5.4) 12/19/20 04:49 [place] # (Auto) 0.4 K/mm3 (0.0-0.8) 12/19/20 04:49 Eos # (Auto) 0.1 K/mm3 (0.0-0.4) 12/19/20 04:49 Baso # (Auto) 0.0 K/mm3 (0.0-0.1) 12/19/20 04:49 Seg Neutrophils % 74.0 % (40.0-70.0) H 12/19/20 04:49 Seg Neutrophils # 5.7 K/mm3 (1.8-7.7) 12/19/20 04:49 PT 14.2 Sec. (12.2-14.9) 12/18/20 09:59 INR 1.04 (0.87-1.13) 12/18/20 09:59 APTT 30.8 Sec. (24.2-36.6) 12/18/20 09:59 Sodium 135 mmol/L (137-145) L 12/19/20 04:49 Potassium 3.8 mmol/L (3.6-5.0) 12/19/20 04:49 Chloride 101.6 mmol/L (98-107) 12/19/20 04:49 Carbon Dioxide 22 mmol/L (22-30) 12/19/20 04:49 Anion Gap 15 mmol/L 12/19/20 04:49 BUN 10 mg/dL (7-17) 12/19/20 04:49 Creatinine 0.7 mg/dL (0.6-1.2) 12/19/20 04:49 Estimated GFR > 60 ml/min 12/19/20 04:49 BUN/Creatinine Ratio 14 % 12/19/20 04:49 Glucose 164 mg/dL (65-100) H 12/19/20 04:49 POC Glucose 135 mg/dL (70-105) H 12/19/20 17:11 Calcium 8.5 mg/dL (8.4-10.2) 12/19/20 04:49 Total Bilirubin 0.30 mg/dL (0.1-1.2) 12/19/20 04:49 AST 17 units/L (5-40) 12/19/20 04:49 ALT 15 units/L (7-56) 12/19/20 04:49 Alkaline Phosphatase 115 units/L (35-129) 12/19/20 04:49 Troponin T < 0.010 ng/mL (0.00-0.029) 12/18/20 09:59 Total Protein 8.2 g/dL (6.3-8.2) 12/19/20 04:49 Albumin 3.7 g/dL (3.9-5) L 12/19/20 04:49 Albumin/Globulin Ratio 0.8 % 12/19/20 04:49 Triglycerides 104 mg/dL (2-149) 12/19/20 13:58 Cholesterol 89 mg/dL (50-199) 12/19/20 13:58 LDL Cholesterol Direct 54 mg/dL (50-130) 12/19/20 13:58 HDL Cholesterol 26 mg/dL (40-59) L 12/19/20 13:58 Cholesterol/HDL Ratio 3.42 % 12/19/20 13:58 Active Medications - Current Medications Current Medications: Generic Name Dose Route Start Last Admin Trade Name Freq PRN Reason Stop Dose Admin Acetaminophen 650 mg 12/18/20 13:00 Acetaminophen 325 Mg Tab PO Q4H PRN Pain MILD(1-3)/Fever >100.5/PERKINS Aspirin 325 mg 12/19/20 19:25 Aspirin 325 Mg Tab PO QDAY [facility] Atorvastatin Calcium 40 mg 12/19/20 22:00 Atorvastatin 40 Mg Tab PO QHS [facility] Docusate Sodium 100 mg 12/19/20 22:00 Docusate Sodium 100 Mg Cap PO BID [facility] Famotidine 20 mg 12/20/20 10:00 Famotidine 20 Mg Tab PO QDAY [facility] Sodium Chloride 1,000 mls @ 75 mls/hr 12/18/20 13:00 12/18/20 13:27 Nacl 0.9% 1000 Ml IV 75 mls/hr DIRECT CHRISTINE Administration Insulin Human Lispro 0 unit 12/19/20 07:30 12/19/20 17:51 Insulin Lispro 100 Unit/Ml SUB-Q Not Given ACHS [facility] Protocol Ondansetron HCl 4 mg 12/18/20 13:00 Ondansetron 4 Mg/2 Ml Inj IV Q8H PRN Nausea And Vomiting Oxycodone/Acetaminophen 1 tab 12/19/20 19:46 Oxycodone /Acetaminophen 5-325mg Tab PO Q8H PRN Pain, Moderate (4-6) Sodium Chloride 10 ml 12/18/20 13:00 12/19/20 10:06 Sodium Chloride 0.9% 10 Ml Flush Syringe IV 10 ml BID CHRISTINE Administration Sodium Chloride 10 ml 12/18/20 13:00 Sodium Chloride 0.9% 10 Ml Flush Syringe IV PRN PRN LINE FLUSH Sodium Chloride 10 ml 12/19/20 06:53 Sodium Chloride 0.9% 10 Ml Flush Syringe IV PRN PRN LINE FLUSH
--- NOTE | 2020-12-20 17:30 | Discharge Summary ---
<BANG JOHNSON - Last Filed: 12/20/20 17:31> Providers - Providers Date of Admission: 12/18/20 11:30 Date of discharge: 12/19/20 Attending physician: BILL GUERRERO MD 12/18/20 12:16 Consult to Physician [CONS] Routine Comment: Consulting Provider: VILMA SU Physician Instructions: Reason For Exam: acute cva 12/19/20 06:53 Occupational Therapy Evaluate and Treat [CONS] Routine Comment: Reason For Exam: Neuro deficits Physical Therapy Evaluation and Treat [CONS] Routine Comment: Reason For Exam: Neuro deficits Primary care physician: PASSENGER TIRE INSPECTOR Hospitalization Condition: Stable Hospital course: This is a 35-year-old female with HTN, prior TIA 2 months prior, HLD, DM, lupus, MO, and CHF who presents to the emergency department with left-sided weakness in both upper and lower extremity, inability to stand or walk, inability to left arm with last known well at 7 AM. Code stroke was called in the emergency department telemetry neurology prescribed TPA which was given. Post TPA patient initially had some improvement in the left upper and lower extremity weakness. On 12/[address] head today and MRI brain was pending, patient was downgraded to telemetry. However unfortunately patient left AMA overnight. Neuro: Acute CVA -Neurology consulted, appreciate recommendations -Initial CT head without contrast showed no acute intracranial abnormality -Received TPA 12/18 ~30 -CTA head/neck completed-> see report -MRI brain pending -[address] head shows temporal evolution of recent infarct of the right frontal lobe without evidence of acute intracranial hemorrhage -PT/OT consulted, appreciate recommendations -Accu-Cheks q4 -Avoid hypoglycemia and maintain normothermia -Avoid hypotension with goal systolic blood less than 160/110 -Aspiration/seizure/fall precautions -Neurochecks per protocol -Lipid profile pending -Aspirin, Lipitor -12/19 echocardiogram shows mild concentric LVH, normal biVAl function left and right ventricle systolic function, negative contrast study for shunt flow Cardio: h/o HTN, hyperlipidemia -No home medications listed -Ask RN to update -Blood pressure monitor per protocol -Maintain blood pressure less than 160/110 Respiratory: NAD -Supplemental oxygen as needed -Continue SPO2 monitoring -Pulmonary hygiene GI: MO -CC cardiac diet -BR: Colace -PPI -Encourage lifestyle and dietary modifications : Hyponateremia -purwick -Trend BMP Endo: h/o DM -hbg A1C pending -CC cardiac diet -Aviod hypoglycemia -Accucheck ACHS -SSI Heme: NAD -Trend CBC -Transfuse for hemoglobin less than 7 -Heparin subcu -SCDs to bilateral lower extremities while in bed Disposition: 07 LEFT AGAINST MEDICAL ADVICE Final Discharge Diagnosis (Prints w/discharge instructions): r/o CVA Time spent for discharge: 30 Core Measure Documentation - Palliative Care Palliative Care/ Comfort Measures: Not Applicable (pt left ama) - Core Measures Any of the following diagnoses?: stroke - Stroke Discharge Requirements Statin for LDL = or >70 mg/dl on DC: Not Applicable (pt left AMA) Anticoag for atrial fib/atrial flutter: Not Applicable Antithrombotic for ischemic stroke: No Reason for no antithrombotic on DC: Patient Noncompliance Stroke additional comments: left AMA Exam - Constitutional Vitals: Temp Pulse Resp BP Pulse Ox 112 H 21 121/86 95 12/19/20 19:30 12/19/20 19:30 12/19/20 19:45 12/19/20 19:45 Plan Follow up with: PRIMARY MD JIMENEZ [Primary Care Provider] - 7 Days Forms: AMA Form <BILL GUERRERO - Last Filed: 12/20/20 20:41> Providers - Providers Date of Admission: 12/18/20 11:30 Attending physician: BILL GUERRERO MD 12/18/20 12:16 Consult to Physician [CONS] Routine Comment: Consulting Provider: VILMA SU Physician Instructions: Reason For Exam: acute cva 12/19/20 06:53 Occupational Therapy Evaluate and Treat [CONS] Routine Comment: Reason For Exam: Neuro deficits Physical Therapy Evaluation and Treat [CONS] Routine Comment: Reason For Exam: Neuro deficits Primary care physician: PASSENGER TIRE INSPECTOR Exam - Constitutional Vitals: Temp Pulse Resp BP Pulse Ox 112 H 21 121/86 95 12/19/20 19:30 12/19/20 19:30 12/19/20 19:45 12/19/20 19:45
--- NOTE | 2020-12-21 10:48 | Electrocardiograph Report ---
[facility] Test Date: 2020-12-18 Test Time: 10:07:29 Pat Name: NEO WONG Department: Room: [place] [address] Gender: F [employer] Order And Stock Clerk: CARLOS : 1985 Requested By: SHEREEN QUISPE Order Number: [id number] Reading MD: Chaz Ordonez Measurements Intervals [place] Rate: 83 P: 33 WY: 187 QRS: 18 QRSD: 74 T: 17 QT: 379 QTc: 447 Interpretive Statements Sinus rhythm Anterolateral Q wave, probably normal for age No previous ECG available for comparison Electronically Signed On 12-21-2020 10:47:56 EDT by Chaz Ordonez
== END 2020-12-19 21:00 | disposition left against medical advice (07) | DRG 62 ==
LOC: ED 09:21 → 4A 11:30 → CC1 13:34
PROVIDERS: ADMIT Internal Medicine; ATTEND Internal Medicine
DX: I63.9 Cerebral infarction, unspecified (principal); Z68.45 Body mass index [BMI] 70 or greater, adult; E87.1 Hypo-osmolality and hyponatremia; I11.0 Hypertensive heart disease with heart failure; I50.9 Heart failure, unspecified; E78.5 Hyperlipidemia, unspecified; E11.9 Type 2 diabetes mellitus without complications; M32.9 Systemic lupus erythematosus, unspecified; Z82.49 Family history of ischemic heart disease and other diseases of the circulatory system; R29.705 NIHSS score 5; Z88.8 Allergy status to other drugs, medicaments and biological substances; Z91.041 Radiographic dye allergy status; Z79.4 Long term (current) use of insulin; E66.01 Morbid (severe) obesity due to excess calories
CPT/HCPCS: 36415; 70450; 70496; 70498; 71045; 80053; 80061; 82962; 84484; 85025; 85610; 85730; 93005; 93306; G0378; J1170; J2270; J2997; J7030; Q9967